=== PATIENT | female | born 1940 | race Caucasian/White ===

== ENCOUNTER 2024-02-27 19:32 | Inpatient (IN) | payer MEDICARE, OTHER ==
[2024-02-27] MEDS ORDERED: Ondansetron PF 4 MG/2 ML Vial ONE (20:00)
[2024-02-27] MEDS ORDERED: Piperacillin/Tazobactam 3.375 GM VIAL ONE (20:00)
[2024-02-27] MEDS ORDERED: Sodium Chloride 0.9% 100 ML ONE (20:01)
[2024-02-27 20:27] LABS: Bilirubin Negative (Negative); Blood, Urine 2+ (Negative); CAUTI Indications for Culture Alt mental st,lethar; Clarity Turbid (Clear); Glucose, Urine (Dipstick) Greater than 1000 mg/dL (Negative); Ketone, Urine 20 mg/dL (Negative); Leukocyte 500 Leu/uL (Negative); Nitrite 1+ (Negative); Protein, Urine (Dipstick) 200 mg/dL (Neg-Trace); Specific Gravity, Urine 1.019 (1.002-1.036); Squamous Epithelial 0-3 HPF (0-3); Urobilinogen 3 mg/dL (Less than 2); WBC/HPF Greater than 50 HPF (0-3)
[2024-02-27 20:28] LABS: Bacteria/HPF 1+ HPF (None Seen)
[2024-02-27 20:29] LABS: Urine Culture Reflex Yes Yes
[2024-02-27 20:34] LABS: #Basophils Less than 0.03 10x3/uL (0.0-0.2); #Eosinophils Less than 0.03 10x3/uL (0.0-0.7); %Lymphocytes 4.7 % (21.0-51.0); %Monocytes 1.8 % (0.0-10.0); %Neutrophils 93.3 % (42.0-75.0); Hematocrit 35.8 % (36.0-47.0); Hemoglobin 12.5 g/dL (12.0-16.0); Mean Corpuscular HGB CONC 34.9 g/dL (32.0-36.0); Mean Corpuscular Hemoglobin 30.5 pg (27.0-31.0); Mean Corpuscular Volume 87.3 fL (78.0-98.0); Mean Platelet Volume 12.6 fL (7.4-10.4); Platelet Count 142 10x3/uL (130-400); RBC Distribution Width 11.4 % (11.5-14.5)
[2024-02-27 20:48] LABS: INR-International Normal Ratio 1.3; PTT 30.7 sec (22.9-36.1); Prothrombin Time 15.7 sec (12.0-14.7)
[2024-02-27 20:52] LABS: ALT (SGPT) 7 U/L (8-55); AST (SGOT) 10 U/L (5-34); Alkaline Phosphatase 79 U/L (40-110); Anion Gap 16 mmol/L (10-20); BUN (Urea Nitrogen) 10 mg/dL (9.8-20.1); Bilirubin, Total 2.2 mg/dL (0.2-1.2); Calc. Creatinine Clearance 0 mL/min (70-130); Calcium 8.5 mg/dL (7.8-10.44); Carbon Dioxide 22 mmol/L (23-31); Chloride 101 mmol/L (98-107); Estimated GFR 43; Glucose 261 mg/dL (83-110); Lipase 10 U/L (8-78); Magnesium 1.1 mg/dL (1.6-2.6); Potassium 2.8 mmol/L (3.5-5.1); Sodium 136 mmol/L (136-145)
[2024-02-27 20:59] LABS: Troponin I 0.421 ng/mL (< 0.028)
[2024-02-27 23:25] LABS: Lactic Acid 1.91 mmol/L (0.5-2.2)
[2024-02-27] MEDS ORDERED: Potassium Chloride 20 MEQ (100 mL) BAG ONE (23:45)
[2024-02-27] MEDS ORDERED: Magnesium 2 GM/50 ML BAG (IN WATER) ONE (23:45)
[2024-02-27] MEDS ORDERED: Vancomycin 1 GM/200 ML (FROZEN) BAG ONE (23:45)
[2024-02-28] MEDS ORDERED: Acetaminophen 325 MG TAB PO PRN (00:14)
[2024-02-28] MEDS ORDERED: traMADol HCl 50 MG TAB PO PRN (00:14)
[2024-02-28] MEDS ORDERED: Ondansetron PF 4 MG/2 ML Vial IVP PRN (00:14)
[2024-02-28] MEDS ORDERED: Ondansetron ODT 4 MG TAB PO PRN (00:14)
[2024-02-28] MEDS ORDERED: Dexamethasone 20 MG/5 ML VIAL ONE (00:25)
[2024-02-28] MEDS ORDERED: Lidocaine 1% PF 5 ML VIAL ONE (00:25)
[2024-02-28] MEDS ORDERED: PROPOFOL 200 MG/20 ML VIAL ONE (00:25)
[2024-02-28] MEDS ORDERED: Rocuronium Bromide 10 MG/ML (10ML VIAL) ONE (00:25)
[2024-02-28] MEDS ORDERED: PHENYLEPHRINE-NS 100 MCG/ML 10 ML SYRINGE ONE (00:36)
[2024-02-28] MEDS ORDERED: fentaNYL 50 mcg/mL 1 mL Vial ONE (00:36)
[2024-02-28] MEDS ORDERED: SUGAMMADEX SODIUM 200 MG/2 ML VIAL ONE (00:45)
[2024-02-28] MEDS ORDERED: Potassium Chloride 20 MEQ in Premix 1 BAG IVPB SCH (00:45)
[2024-02-28] MEDS ORDERED: Iopamidol 30 ML ONE (01:08)
[2024-02-28] MEDS ORDERED: Ondansetron HCl/PF 4 MG/2 ML Vial IVP PRN (01:12)
[2024-02-28] MEDS ORDERED: Dextrose 5% in Water 1,000 ML IV PRN (01:40)
[2024-02-28] MEDS ORDERED: Dextrose 50% Abboject 50 ML SYRINGE SLOW IVP PRN (01:40)
[2024-02-28] MEDS ORDERED: Glucagon 1 MG/ML KIT IM PRN (01:40)
[2024-02-28] MEDS: Sodium Chloride 0.9% 1,000 ML IV SCH (02:00)
[2024-02-28 02:39] LABS: #Basophils 0.03 10x3/uL (0.0-0.2); #Eosinophils Less than 0.03 10x3/uL (0.0-0.7); %Basophils 0.1 % (0.0-1.0); %Lymphocytes 2.7 % (21.0-51.0); %Monocytes 3.2 % (0.0-10.0); %Neutrophils 93.5 % (42.0-75.0); Hematocrit 37.1 % (36.0-47.0); Hemoglobin 12.3 g/dL (12.0-16.0); Mean Corpuscular HGB CONC 33.2 g/dL (32.0-36.0); Mean Corpuscular Hemoglobin 30.8 pg (27.0-31.0); Mean Platelet Volume 12.9 fL (7.4-10.4); Platelet Count 143 10x3/uL (130-400); RBC Distribution Width 11.3 % (11.5-14.5); Red Blood Cell (RBC) Count 3.99 mill/uL (4.20-5.40)
[2024-02-28] MEDS ORDERED: Insulin Lispro 100 UNIT/ML 10 ML VIAL ONE (02:49)
[2024-02-28] MEDS: Insulin Lispro 100 UNIT/ML 10 ML VIAL SC PRN ×2 (02:55→21:57)
[2024-02-28] MEDS ORDERED: cefTRIAXone (ROCEPHIN) 1 GM VIAL ONE (02:56)
[2024-02-28] MEDS ORDERED: Sodium Chloride 0.9% 100 ML ONE (02:57)
[2024-02-28] MEDS: cefTRIAXone\\ROCEPHIN 1 GM in Sodium Chloride 0.9% 100 ML IVPB SCH ×2 (03:04→17:42)
[2024-02-28 04:56] LABS: Troponin I 1.246 ng/mL (< 0.028)
[2024-02-28 05:02] LABS: ALT (SGPT) 11 U/L (8-55); AST (SGOT) 23 U/L (5-34); Albumin 2.9 g/dL (3.4-4.8); Alkaline Phosphatase 69 U/L (40-110); Anion Gap 18 mmol/L (10-20); BUN (Urea Nitrogen) 12 mg/dL (9.8-20.1); Bilirubin, Total 2.4 mg/dL (0.2-1.2); Calc. Creatinine Clearance 0 mL/min (70-130); Calcium 8.4 mg/dL (7.8-10.44); Carbon Dioxide 20 mmol/L (23-31); Chloride 101 mmol/L (98-107); Estimated GFR 50; Globulin 3.2 g/dL (2.4-3.5); Glucose 357 mg/dL (83-110); Potassium 3.5 mmol/L (3.5-5.1); Protein, Total 6.1 g/dL (5.8-8.1); Sodium 135 mmol/L (136-145)
[2024-02-28 06:16] VITALS: BMI 24.8
[2024-02-28 06:47] LABS: Troponin I 0.871 ng/mL (< 0.028)
[2024-02-28] MEDS ORDERED: Enoxaparin 40 MG (0.4 mL) SYRINGE SC SCH (09:00)
[2024-02-28 09:44] LABS: ALT (SGPT) 12 U/L (8-55); AST (SGOT) 24 U/L (5-34); Albumin 3.1 g/dL (3.4-4.8); Alkaline Phosphatase 86 U/L (40-110); Anion Gap 17 mmol/L (10-20); BUN (Urea Nitrogen) 13 mg/dL (9.8-20.1); Bilirubin, Total 1.4 mg/dL (0.2-1.2); Calc. Creatinine Clearance 38 mL/min (70-130); Calcium 8.9 mg/dL (7.8-10.44); Carbon Dioxide 20 mmol/L (23-31); Chloride 102 mmol/L (98-107); Estimated GFR 51; Globulin 3.9 g/dL (2.4-3.5); Glucose 379 mg/dL (83-110); Magnesium 2.2 mg/dL (1.6-2.6); Potassium 4.4 mmol/L (3.5-5.1); Sodium 135 mmol/L (136-145)
[2024-02-28] MEDS: Heparin 5,000 UNITS/ML VIAL SC SCH (10:10)
[2024-02-28] MEDS: Famotidine 20 MG TAB PO SCH (10:11)
[2024-02-28] MEDS: Famotidine/PF 20 mg/2ml Vial SLOW IVP SCH (10:11)
[2024-02-28] MEDS: Folic Acid 1 MG TAB PO SCH (10:11)
[2024-02-28] MEDS: Potassium Chloride 20 MEQ TAB PO SCH (10:11)
[2024-02-28] MEDS: FLU (Fluad Triv) TS24-25 (65UP)/MF59C/PF 45 MCG/0.5 ML Syringe IM ONE (10:13)
[2024-02-28] MEDS: Insulin Glargine 30 UNITS/0.3 ML VIAL SC SCH (17:02)
[2024-02-28] MEDS: Donepezil HCl 10 MG TAB PO SCH (21:52)
[2024-02-29 05:35] LABS: Critical Call Chem Troponin I RESULT DECREASING; Troponin I 0.399 ng/mL (< 0.028)
[2024-02-29 08:42] LABS: #Basophils Less than 0.03 10x3/uL (0.0-0.2); #Eosinophils Less than 0.03 10x3/uL (0.0-0.7); %Basophils 0.2 % (0.0-1.0); %Lymphocytes 12.4 % (21.0-51.0); %Monocytes 7.6 % (0.0-10.0); %Neutrophils 79.6 % (42.0-75.0); Hematocrit 33.3 % (36.0-47.0); Hemoglobin 11.2 g/dL (12.0-16.0); Mean Corpuscular HGB CONC 33.6 g/dL (32.0-36.0); Mean Corpuscular Hemoglobin 30.5 pg (27.0-31.0); Mean Corpuscular Volume 90.7 fL (78.0-98.0); Mean Platelet Volume 14.2 fL (7.4-10.4); Platelet Count 141 10x3/uL (130-400); RBC Distribution Width 11.8 % (11.5-14.5); Red Blood Cell (RBC) Count 3.67 mill/uL (4.20-5.40)
[2024-02-29] MEDS: Insulin Glargine 30 UNITS/0.3 ML VIAL SC SCH (08:42)
[2024-02-29 09:03] LABS: Anion Gap 16 mmol/L (10-20); BUN (Urea Nitrogen) 22 mg/dL (9.8-20.1); Calc. Creatinine Clearance 46 mL/min (70-130); Calcium 8.3 mg/dL (7.8-10.44); Carbon Dioxide 19 mmol/L (23-31); Chloride 104 mmol/L (98-107); Estimated GFR 63; Glucose 307 mg/dL (83-110); Potassium 4.2 mmol/L (3.5-5.1); Sodium 135 mmol/L (136-145)
[2024-02-29 12:23] VITALS: TEMP 98.3
[2024-02-29] MEDS: hydrALAZINE 10 MG TAB PO PRN (12:32)
[2024-02-29 13:52] VITALS: BP 166/78
[2024-02-29] MEDS ORDERED: cefTRIAXone\\ROCEPHIN 2 GM in Sodium Chloride 0.9% 100 ML IVPB SCH (17:00)
== END 2024-02-29 15:36 | DRG 853 ==
LOC: ERS 19:32 → UNDOADMIN 23:43 → ERHOLD 23:43 → SDC/OP 02-28 00:13 → 2NO 02-28 04:28
PROVIDERS: ADMIT Internal Medicine; ATTEND Internal Medicine
PROC: 0T778DZ Dilation of Left Ureter with Intraluminal Device, Via Natural or Artificial Opening Endoscopic (ICD-10-PCS; principal; 2024-02-28)
PROC: BT1FZZZ Fluoroscopy of Left Kidney, Ureter and Bladder (ICD-10-PCS; 2024-02-28)
DX: A41.59 Other Gram-negative sepsis (principal); G93.41 Metabolic encephalopathy; I21.4 Non-ST elevation (NSTEMI) myocardial infarction; E87.20 Acidosis, unspecified; N39.0 Urinary tract infection, site not specified; N20.1 Calculus of ureter; F03.93 Unspecified dementia, unspecified severity, with mood disturbance; R65.20 Severe sepsis without septic shock; I10 Essential (primary) hypertension; E11.9 Type 2 diabetes mellitus without complications; E87.6 Hypokalemia; Z66 Do not resuscitate; M19.90 Unspecified osteoarthritis, unspecified site; B96.4 Proteus (mirabilis) (morganii) as the cause of diseases classified elsewhere; B96.1 Klebsiella pneumoniae [K. pneumoniae] as the cause of diseases classified elsewhere; F32.A Depression, unspecified; N13.9 Obstructive and reflux uropathy, unspecified; Z90.710 Acquired absence of both cervix and uterus
CPT/HCPCS: 36415; 36416; 70450; 71045; 74176; 74420; 80048; 80053; 81001; 83605; 83690; 83735; 83880; 84145; 84443; 84484; 85025; 85610; 85730; 87040; 87077; 87086; 87149; 87186; 93005; C2617; J0696; J1100; J1644; J1815; J2405; J2543; J2704; J3010; J3370-JW; J3475; J3480; J3490; J7030; Q9967

== ENCOUNTER 2024-03-03 16:26 | Inpatient (IN) | payer MEDICARE ==
[2024-03-03] MEDS ORDERED: Ondansetron PF 4 MG/2 ML Vial ONE ×2 (17:28→20:05)
[2024-03-03 17:33] LABS: Actual Bicarbonate (HCO3v) 29.2 mEq/L (22-28); Base Excess 2.6 mEq/L (-2.0 to +3.0); Calcium, Ionized (venous) 1.19 mmol/L (1.16-1.32); Chloride (VBG) 94 mmol/L (98-106); Hematocrit-VBG 47 % (36.0-47.0); Hemoglobin (Hb) 16.1 g/dL (11.7-16.1); Potassium (VBG) 4.33 mmol/L (3.70-5.30); Sodium 138 mmol/L (133-146); pH (venous) 7.368 (7.32-7.43)
[2024-03-03 17:45] LABS: Hematocrit 43.9 % (36.0-47.0); Hemoglobin 15.3 g/dL (12.0-16.0); Mean Corpuscular HGB CONC 34.9 g/dL (32.0-36.0); Mean Corpuscular Hemoglobin 29.9 pg (27.0-31.0); Mean Corpuscular Volume 85.9 fL (78.0-98.0); Mean Platelet Volume 11.5 fL (7.4-10.4); Platelet Count 287 10x3/uL (130-400); RBC Distribution Width 11.1 % (11.5-14.5); Red Blood Cell (RBC) Count 5.11 mill/uL (4.20-5.40)
[2024-03-03 18:06] LABS: ALT (SGPT) 13 U/L (8-55); AST (SGOT) 21 U/L (5-34); Albumin 3.6 g/dL (3.4-4.8); Alkaline Phosphatase 85 U/L (40-110); Anion Gap 19 mmol/L (10-20); BUN (Urea Nitrogen) 9 mg/dL (9.8-20.1); Bilirubin, Total 0.7 mg/dL (0.2-1.2); Calc. Creatinine Clearance 0 mL/min (70-130); Calcium 9.8 mg/dL (7.8-10.44); Carbon Dioxide 26 mmol/L (23-31); Chloride 95 mmol/L (98-107); Estimated GFR 52; Globulin 4.2 g/dL (2.4-3.5); Glucose 298 mg/dL (83-110); Lipase 31 U/L (8-78); Magnesium 1.7 mg/dL (1.6-2.6); Potassium 4.5 mmol/L (3.5-5.1); Protein, Total 7.8 g/dL (5.8-8.1); Sodium 135 mmol/L (136-145)
[2024-03-03 18:08] LABS: Troponin I 0.049 ng/mL (< 0.028)
[2024-03-03 18:22] LABS: Band 2 % (5-11); Lymphocytes 9 % (21-51); Monocytes 7 % (0-10); Neutrophil 81 % (42-75); Platelet Adequacy Comment Platelets Normal; Reactive Lymphocytes 1 % (0-10)
[2024-03-03 20:35] LABS: Bacteria/HPF None Seen HPF (None Seen); Bilirubin Negative (Negative); Blood, Urine Trace (Negative); CAUTI Indications for Culture Dysuria,urgency,freq; Clarity Clear (Clear); Glucose, Urine (Dipstick) Greater than 1000 mg/dL (Negative); Ketone, Urine 20 mg/dL (Negative); Leukocyte 25 Leu/uL (Negative); Nitrite Negative (Negative); Protein, Urine (Dipstick) 10 mg/dL (Neg-Trace); Specific Gravity, Urine 1.001 (1.002-1.036); Urobilinogen Normal mg/dL (Less than 2); pH, Urine 6.5 (5.0-9.0)
[2024-03-03 20:37] LABS: Urine Culture Reflex No No
[2024-03-03] MEDS ORDERED: cefTRIAXone (ROCEPHIN) 2 GM VIAL ONE (21:08)
[2024-03-03] MEDS ORDERED: Sodium Chloride 0.9% 100 ML ONE (21:08)
[2024-03-03] MEDS ORDERED: Acetaminophen 650 MG Suppository PR PRN (21:57)
[2024-03-03] MEDS ORDERED: Dextrose 50% Abboject 50 ML SYRINGE SLOW IVP PRN (21:58)
[2024-03-03] MEDS ORDERED: Dextrose 5% in Water 1,000 ML IV PRN (21:58)
[2024-03-03] MEDS ORDERED: Glucagon 1 MG/ML KIT IM PRN (21:58)
[2024-03-03 22:43] VITALS: BMI 23.3
[2024-03-03] MEDS: Insulin Lispro 100 UNIT/ML 10 ML VIAL SC PRN (23:25)
[2024-03-03] MEDS: FLU (Fluad Triv) TS24-25 (65UP)/MF59C/PF 45 MCG/0.5 ML Syringe IM ONE (23:40)
[2024-03-03] MEDS: Acetaminophen 325 MG TAB PO SCH (23:40)
[2024-03-04] MEDS: Ondansetron PF 4 MG/2 ML Vial IVP PRN (01:44)
[2024-03-04] MEDS: Insulin Lispro 100 UNIT/ML 10 ML VIAL SC PRN (05:30)
[2024-03-04] MEDS: Nitroglycerin 2% Ointment 1 INCH/1 GM Packet TOP SCH (05:30)
[2024-03-04 08:26] LABS: #Basophils Less than 0.03 10x3/uL (0.0-0.2); #Eosinophils Less than 0.03 10x3/uL (0.0-0.7); %Basophils 0.1 % (0.0-1.0); %Lymphocytes 7.1 % (21.0-51.0); %Monocytes 3.2 % (0.0-10.0); %Neutrophils 88.9 % (42.0-75.0); Hematocrit 43.8 % (36.0-47.0); Hemoglobin 14.8 g/dL (12.0-16.0); Mean Corpuscular HGB CONC 33.8 g/dL (32.0-36.0); Mean Corpuscular Volume 88.8 fL (78.0-98.0); Mean Platelet Volume 11.5 fL (7.4-10.4); Platelet Count 344 10x3/uL (130-400); RBC Distribution Width 11.1 % (11.5-14.5); Red Blood Cell (RBC) Count 4.93 mill/uL (4.20-5.40)
[2024-03-04 08:41] LABS: Anion Gap 17 mmol/L (10-20); BUN (Urea Nitrogen) 12 mg/dL (9.8-20.1); Calc. Creatinine Clearance 42 mL/min (70-130); Calcium 9.7 mg/dL (7.8-10.44); Carbon Dioxide 24 mmol/L (23-31); Chloride 97 mmol/L (98-107); Estimated GFR 61; Glucose 321 mg/dL (83-110); Potassium 3.4 mmol/L (3.5-5.1); Sodium 135 mmol/L (136-145)
[2024-03-04] MEDS: Famotidine/PF 20 mg/2ml Vial SLOW IVP SCH (08:53)
[2024-03-04] MEDS ORDERED: Semaglutide [Rybelsus] 3 MG Tablet PO SCH (09:00)
[2024-03-04] MEDS ORDERED: Amlodipine 5 MG TAB PO SCH (09:00)
[2024-03-04] MEDS: Folic Acid 1 MG TAB PO SCH (09:00)
[2024-03-04] MEDS: Amlodipine 10 MG TAB PO SCH (09:01)
[2024-03-04] MEDS: Losartan 25 MG TAB PO SCH (09:01)
[2024-03-04] MEDS: Famotidine 20 MG TAB PO SCH (09:01)
[2024-03-04] MEDS: cefTRIAXone\\ROCEPHIN 1 GM in Sodium Chloride 0.9% 100 ML IVPB SCH (09:06)
[2024-03-04] MEDS: Insulin Glargine 30 UNITS/0.3 ML VIAL SC SCH (09:17)
[2024-03-04 12:02] VITALS: BMI 23.3
[2024-03-04] MEDS: hydrALAZINE 20 MG/ML VIAL SLOW IVP PRN (12:34)
[2024-03-04] MEDS: hydrALAZINE 25 MG TAB PO SCH (15:47)
[2024-03-04] MEDS: Lactated Ringer's 1,000 ML IV SCH ×2 (15:48→17:02)
[2024-03-04] MEDS: Donepezil HCl 5 MG TAB PO SCH (20:45)
[2024-03-05 05:57] LABS: #Basophils 0.03 10x3/uL (0.0-0.2); #Eosinophils Less than 0.03 10x3/uL (0.0-0.7); %Basophils 0.2 % (0.0-1.0); %Monocytes 7.1 % (0.0-10.0); %Neutrophils 81.7 % (42.0-75.0); Hemoglobin 14.5 g/dL (12.0-16.0); Mean Corpuscular HGB CONC 33.7 g/dL (32.0-36.0); Mean Corpuscular Hemoglobin 30.1 pg (27.0-31.0); Mean Corpuscular Volume 89.2 fL (78.0-98.0); Mean Platelet Volume 11.2 fL (7.4-10.4); Platelet Count 333 10x3/uL (130-400); RBC Distribution Width 11.4 % (11.5-14.5); Red Blood Cell (RBC) Count 4.82 mill/uL (4.20-5.40)
[2024-03-05 06:14] LABS: ALT (SGPT) 16 U/L (8-55); AST (SGOT) 20 U/L (5-34); Albumin 3.4 g/dL (3.4-4.8); Alkaline Phosphatase 83 U/L (40-110); Anion Gap 18 mmol/L (10-20); BUN (Urea Nitrogen) 15 mg/dL (9.8-20.1); Bilirubin, Total 0.7 mg/dL (0.2-1.2); Calc. Creatinine Clearance 46 mL/min (70-130); Calcium 9.4 mg/dL (7.8-10.44); Carbon Dioxide 22 mmol/L (23-31); Chloride 98 mmol/L (98-107); Estimated GFR 68; Globulin 3.5 g/dL (2.4-3.5); Glucose 287 mg/dL (83-110); Potassium 3.1 mmol/L (3.5-5.1); Protein, Total 6.9 g/dL (5.8-8.1); Sodium 135 mmol/L (136-145)
[2024-03-05] MEDS: Potassium Chloride 20 MEQ TAB PO SCH (10:23)
[2024-03-05] MEDS: hydrALAZINE 25 MG TAB PO SCH (10:24)
[2024-03-05] MEDS: Insulin Glargine 30 UNITS/0.3 ML VIAL SC SCH (10:25)
[2024-03-05] MEDS ORDERED: Iopamidol-370 76% 500 ML MDV (1 ML CHARGE) ONE (10:25)
[2024-03-05] MEDS: Senokot S 8.6-50 MG TAB PO SCH (21:08)
[2024-03-05] MEDS: cefTRIAXone\\ROCEPHIN 2 GM in Sodium Chloride 0.9% 100 ML IVPB SCH (21:55)
[2024-03-06 05:53] LABS: #Basophils 0.03 10x3/uL (0.0-0.2); #Eosinophils Less than 0.03 10x3/uL (0.0-0.7); %Basophils 0.2 % (0.0-1.0); %Eosinophils 0.2 % (0.0-10.0); %Lymphocytes 12.7 % (21.0-51.0); %Monocytes 11.3 % (0.0-10.0); %Neutrophils 74.6 % (42.0-75.0); Hematocrit 42.2 % (36.0-47.0); Hemoglobin 14.6 g/dL (12.0-16.0); Mean Corpuscular HGB CONC 34.6 g/dL (32.0-36.0); Mean Corpuscular Hemoglobin 29.9 pg (27.0-31.0); Mean Corpuscular Volume 86.3 fL (78.0-98.0); Mean Platelet Volume 11.1 fL (7.4-10.4); Platelet Count 298 10x3/uL (130-400); RBC Distribution Width 11.7 % (11.5-14.5); Red Blood Cell (RBC) Count 4.89 mill/uL (4.20-5.40)
[2024-03-06 06:08] LABS: ALT (SGPT) 24 U/L (8-55); AST (SGOT) 22 U/L (5-34); Alkaline Phosphatase 78 U/L (40-110); Anion Gap 13 mmol/L (10-20); BUN (Urea Nitrogen) 13 mg/dL (9.8-20.1); Bilirubin, Total 0.8 mg/dL (0.2-1.2); Calc. Creatinine Clearance 48 mL/min (70-130); Calcium 8.8 mg/dL (7.8-10.44); Carbon Dioxide 24 mmol/L (23-31); Chloride 97 mmol/L (98-107); Estimated GFR 72; Globulin 3.2 g/dL (2.4-3.5); Glucose 231 mg/dL (83-110); Potassium 2.9 mmol/L (3.5-5.1); Protein, Total 6.2 g/dL (5.8-8.1); Sodium 131 mmol/L (136-145)
[2024-03-06] MEDS ORDERED: Electrolyte Replacement Protocol 1 EACH FS PRN (06:27)
[2024-03-06] MEDS: Potassium Chloride 20 MEQ TAB PO SCH (06:45)
[2024-03-06] MEDS: Ondansetron ODT 4 MG TAB PO PRN (06:52)
[2024-03-06 09:01] LABS: Lactic Acid 0.95 mmol/L (0.5-2.2)
[2024-03-06] MEDS: Polyethylene Glycol 3350 17 GM Packet PO SCH (09:03)
[2024-03-06] MEDS: Carvedilol 6.25 MG TAB PO SCH ×3 (09:05→16:29)
[2024-03-06] MEDS: Insulin Lispro 100 UNIT/ML 10 ML VIAL SC PRN (16:45)
[2024-03-06] MEDS: Bisacodyl 10 MG SUPP PR SCH (16:46)
[2024-03-07 06:37] LABS: #Basophils Less than 0.03 10x3/uL (0.0-0.2); %Basophils 0.2 % (0.0-1.0); %Eosinophils 1.3 % (0.0-10.0); %Lymphocytes 17.3 % (21.0-51.0); %Monocytes 12.8 % (0.0-10.0); %Neutrophils 67.5 % (42.0-75.0); Hemoglobin 13.6 g/dL (12.0-16.0); Mean Corpuscular Hemoglobin 29.8 pg (27.0-31.0); Mean Corpuscular Volume 87.7 fL (78.0-98.0); Mean Platelet Volume 11.1 fL (7.4-10.4); Platelet Count 254 10x3/uL (130-400); RBC Distribution Width 11.5 % (11.5-14.5); Red Blood Cell (RBC) Count 4.56 mill/uL (4.20-5.40)
[2024-03-07 06:52] LABS: ALT (SGPT) 16 U/L (8-55); AST (SGOT) 15 U/L (5-34); Albumin 2.7 g/dL (3.4-4.8); Alkaline Phosphatase 65 U/L (40-110); Anion Gap 12 mmol/L (10-20); BUN (Urea Nitrogen) 11 mg/dL (9.8-20.1); Bilirubin, Total 0.7 mg/dL (0.2-1.2); Calc. Creatinine Clearance 56 mL/min (70-130); Calcium 8.4 mg/dL (7.8-10.44); Carbon Dioxide 23 mmol/L (23-31); Chloride 102 mmol/L (98-107); Estimated GFR 86; Globulin 2.7 g/dL (2.4-3.5); Glucose 142 mg/dL (83-110); Potassium 3.1 mmol/L (3.5-5.1); Protein, Total 5.4 g/dL (5.8-8.1); Sodium 134 mmol/L (136-145)
[2024-03-07] MEDS: Potassium Chloride 20 MEQ TAB PO SCH (09:27)
[2024-03-07] MEDS ORDERED: Potassium Chloride 40 MEQ in Premix 1 BAG IVPB SCH (09:45)
[2024-03-07] MEDS: Potassium Chloride 20 MEQ in Premix 1 BAG IVPB SCH (10:31)
[2024-03-08 05:54] LABS: #Basophils Less than 0.03 10x3/uL (0.0-0.2); %Basophils 0.3 % (0.0-1.0); %Eosinophils 2.3 % (0.0-10.0); %Lymphocytes 27.9 % (21.0-51.0); %Monocytes 10.6 % (0.0-10.0); %Neutrophils 58.1 % (42.0-75.0); Hematocrit 40.6 % (36.0-47.0); Hemoglobin 13.8 g/dL (12.0-16.0); Mean Corpuscular Hemoglobin 30.3 pg (27.0-31.0); Mean Corpuscular Volume 89.2 fL (78.0-98.0); Mean Platelet Volume 10.9 fL (7.4-10.4); Platelet Count 216 10x3/uL (130-400); RBC Distribution Width 11.5 % (11.5-14.5); Red Blood Cell (RBC) Count 4.55 mill/uL (4.20-5.40)
[2024-03-08 06:27] LABS: ALT (SGPT) 14 U/L (8-55); AST (SGOT) 12 U/L (5-34); Albumin 2.8 g/dL (3.4-4.8); Alkaline Phosphatase 65 U/L (40-110); Anion Gap 12 mmol/L (10-20); BUN (Urea Nitrogen) 11 mg/dL (9.8-20.1); Bilirubin, Total 0.6 mg/dL (0.2-1.2); Calc. Creatinine Clearance 59 mL/min (70-130); Calcium 8.5 mg/dL (7.8-10.44); Carbon Dioxide 25 mmol/L (23-31); Chloride 102 mmol/L (98-107); Estimated GFR 87; Globulin 2.5 g/dL (2.4-3.5); Glucose 120 mg/dL (83-110); Potassium 3.2 mmol/L (3.5-5.1); Protein, Total 5.3 g/dL (5.8-8.1); Sodium 136 mmol/L (136-145)
[2024-03-08 07:19] VITALS: BP 144/76; TEMP 97.7
[2024-03-08] MEDS: Potassium Chloride 20 MEQ TAB PO SCH (08:33)
== END 2024-03-08 16:28 | DRG 641 ==
LOC: ERS 16:26 → T4-B 20:50 → OBSVTOIN 03-04 11:03
PROVIDERS: ADMIT Student in an Organized Health Care Education/Training Program; ATTEND Student in an Organized Health Care Education/Training Program
DX: E86.0 Dehydration (principal); I10 Essential (primary) hypertension; E11.9 Type 2 diabetes mellitus without complications; D72.829 Elevated white blood cell count, unspecified; F03.90 Unspecified dementia, unspecified severity, without behavioral disturbance, psychotic disturbance, mood disturbance, and anxiety; Z66 Do not resuscitate; Z90.49 Acquired absence of other specified parts of digestive tract; Z90.710 Acquired absence of both cervix and uterus
CPT/HCPCS: 36415; 36416; 51701; 70450; 71045; 74176; 74177; 80048; 80053; 81001; 82805; 83036; 83605; 83690; 83735; 84145; 84484; 85025; 87040; 87086; 93005; 93970; 96361; 96365; 96375; 96376; G0378; J0360; J0696; J1815; J2405; J3480; J3490; J7120; Q0162; Q9967

== ENCOUNTER → 2024-04-15 | Day surgery (SDC) | payer MEDICARE ==
[2024-04-12 09:52] VITALS: BMI 24.8
[~2024-04-15] MED LIST: LevoFLOXacin D5W 500 mg (100 mL) BAG ONE
== END ==
LOC: SDC 08:14
PROVIDERS: ATTEND Urology
DX: N20.1 Calculus of ureter (principal); Z53.9 Procedure and treatment not carried out, unspecified reason; I10 Essential (primary) hypertension; E11.9 Type 2 diabetes mellitus without complications; F03.90 Unspecified dementia, unspecified severity, without behavioral disturbance, psychotic disturbance, mood disturbance, and anxiety; Z90.710 Acquired absence of both cervix and uterus; Z79.4 Long term (current) use of insulin; Z79.899 Other long term (current) drug therapy
CPT/HCPCS: 82962; J1956; 36416

== ENCOUNTER 2024-04-23 09:11 | Day surgery (SDC) | payer MEDICARE ==
[2024-04-22 12:45] VITALS: BMI 24.7
[~2024-04-23 09:11] MED LIST changes: -LevoFLOXacin D5W 500 mg (100 mL) BAG ONE; +PHENYLEPHRINE-NS 100 MCG/ML 10 ML SYRINGE ONE
[2024-04-23] MEDS ORDERED: Lidocaine 1% MPF 2 ML VIAL ONE (11:08)
[2024-04-23] MEDS ORDERED: LevoFLOXacin 500 mg/D5W 500 MG in Premix 1 BAG IVPB SCH (11:15)
[2024-04-23] MEDS ORDERED: PROPOFOL 20 ML ONE (12:42)
[2024-04-23] MEDS ORDERED: fentaNYL PF 100 MCG/2 ML SYRINGE ONE (12:42)
[2024-04-23] MEDS ORDERED: Iopamidol 15 ML ONE (12:47)
[2024-04-23] MEDS ORDERED: Rocuronium Bromide 10 MG/ML (10ML VIAL) ONE (13:27)
[2024-04-23] MEDS ORDERED: Ondansetron PF 4 MG/2 ML Vial ONE (13:27)
[2024-04-23] MEDS ORDERED: Dexamethasone 4 mg/ml Vial ONE (13:27)
[2024-04-23] MEDS ORDERED: Lidocaine 2% PF 5 ML VIAL ONE (13:27)
[2024-04-23] MEDS ORDERED: SUGAMMADEX SODIUM 200 MG/2 ML VIAL ONE (13:28)
[2024-04-23] MEDS ORDERED: HYDROcodone/Acetaminophen 5/325 mg Tablet ONE (15:35)
== END 2024-04-23 16:45 ==
LOC: SDC 09:11
PROVIDERS: ATTEND Urology
PROC: 0TC18ZZ Extirpation of Matter from Left Kidney, Via Natural or Artificial Opening Endoscopic (ICD-10-PCS; principal; 2024-04-23)
PROC: 0T778DZ Dilation of Left Ureter with Intraluminal Device, Via Natural or Artificial Opening Endoscopic (ICD-10-PCS; 2024-04-23)
DX: N20.0 Calculus of kidney (principal); I10 Essential (primary) hypertension; E11.9 Type 2 diabetes mellitus without complications; F03.90 Unspecified dementia, unspecified severity, without behavioral disturbance, psychotic disturbance, mood disturbance, and anxiety; M06.9 Rheumatoid arthritis, unspecified; Z86.73 Personal history of transient ischemic attack (TIA), and cerebral infarction without residual deficits; Z90.710 Acquired absence of both cervix and uterus; Z90.49 Acquired absence of other specified parts of digestive tract; Z79.899 Other long term (current) drug therapy
CPT/HCPCS: 52356; 74420; 82365; J1100; J1956; J2405; J2704; Q9967; 88300; C1747; C2617

== ENCOUNTER 2024-05-09 13:10 | Emergency (ER) | payer MEDICARE ==
[2024-05-09 13:44] LABS: #Basophils Less than 0.03 10x3/uL (0.0-0.2); %Basophils 0.3 % (0.0-1.0); %Eosinophils 3.3 % (0.0-10.0); %Lymphocytes 36.2 % (21.0-51.0); %Monocytes 8.7 % (0.0-10.0); %Neutrophils 51.2 % (42.0-75.0); Hematocrit 40.3 % (36.0-47.0); Hemoglobin 13.6 g/dL (12.0-16.0); Mean Corpuscular HGB CONC 33.7 g/dL (32.0-36.0); Mean Corpuscular Hemoglobin 29.9 pg (27.0-31.0); Mean Corpuscular Volume 88.6 fL (78.0-98.0); Mean Platelet Volume 11.3 fL (7.4-10.4); Platelet Count 166 10x3/uL (130-400); RBC Distribution Width 12.7 % (11.5-14.5); Red Blood Cell (RBC) Count 4.55 mill/uL (4.20-5.40)
[2024-05-09 14:07] LABS: ALT (SGPT) 9 U/L (8-55); AST (SGOT) 14 U/L (5-34); Albumin 3.4 g/dL (3.4-4.8); Alkaline Phosphatase 67 U/L (40-110); Anion Gap 11 mmol/L (10-20); BUN (Urea Nitrogen) 8 mg/dL (9.8-20.1); Bilirubin, Total 1.3 mg/dL (0.2-1.2); Calc. Creatinine Clearance 0 mL/min (70-130); Calcium 8.7 mg/dL (7.8-10.44); Carbon Dioxide 23 mmol/L (23-31); Chloride 106 mmol/L (98-107); Estimated GFR 88; Glucose 73 mg/dL (83-110); Potassium 3.3 mmol/L (3.5-5.1); Protein, Total 6.4 g/dL (5.8-8.1); Sodium 137 mmol/L (136-145)
[2024-05-09 14:55] LABS: Troponin I Less than 0.010 ng/mL (< 0.028)
[2024-05-09 15:15] LABS: Bacteria/HPF None Seen HPF (None Seen); Bilirubin Negative (Negative); Blood, Urine Negative (Negative); CAUTI Indications for Culture Dysuria,urgency,freq; Clarity Clear (Clear); Glucose, Urine (Dipstick) Normal (Negative); Ketone, Urine Negative (Negative); Leukocyte 75 Leu/uL (Negative); Nitrite Negative (Negative); Protein, Urine (Dipstick) 20 mg/dL (Neg-Trace); RBC/HPF 0-3 HPF (0-3); Specific Gravity, Urine 1.007 (1.002-1.036); Squamous Epithelial 0-3 HPF (0-3); Urobilinogen Normal mg/dL (Less than 2)
[2024-05-09 15:19] LABS: Urine Culture Reflex No No
== END 2024-05-09 15:53 | disposition home or self-care (01) ==
LOC: ERS 13:10
DX: S00.31XA Abrasion of nose, initial encounter (principal); E11.649 Type 2 diabetes mellitus with hypoglycemia without coma; I10 Essential (primary) hypertension; W18.12XA Fall from or off toilet with subsequent striking against object, initial encounter; Z79.4 Long term (current) use of insulin
CPT/HCPCS: 36415; 36416; 51701; 70450; 71045; 80053; 81001; 84484; 85025; 87086; 93005